=== PATIENT | male | born 1940 | race Caucasian/White ===

== ENCOUNTER → 2018-10-19 | Outpatient (CLI) | payer OTHER ==
[2018-05-27 05:24] VITALS: BP 156/67
[~2018-10-19] MED LIST: ACET-704 PO; ASPI-482 PO; ATOR20TA58 PO; CALC600T4 PO; CALCIUM PO; CARV3.1210 PO; CHOL10003 PO; DILT240C2 PO; FISH1CAP PO; FURO-69 PO; GADOBUTROL 10 MMOL/10 ML VIAL IV ONE; GLYB5TAB3 PO; LEVO300T4 PO; LOSA100T14 PO; METF500T PO; MULT1TAB52 PO; OMEG500C PO; OMEP20TA8 PO; POTA20TA12 PO; SILD50TA PO; VARD20TA2 PO; VITAMIN D PO
--- NOTE | 2018-10-19 13:05 | KCIC ---
EXAMINATION: Magnetic resonance imaging (MRI) of the lumbar spine with and without contrast 10/19/2018 11:00 AM HISTORY: Syrinx of the spinal cord. Progressing leg weakness and incontinence.. TECHNIQUE: Multiplanar multi-weighted MRI of the lumbar spine was performed with and without intravenous contrast using the standard lumbar spine protocol. Contrast information: 10 cc Gadavist was administered intravenously. COMPARISON: MRI lumbar spine May 17, 2009, which is not available for comparison at the time of image interpretation. Findings: There is minimal retrolisthesis of L1 on L2. There is advanced disc height loss of L1-L2 with endplate remodeling and moderate anterior marginal osteophytosis. There is moderate disc height loss at L3-L4 with endplate remodeling and Modic type I endplate degenerative changes. There is an inferior endplate Schmorl's node at L3. There is an inferior endplate Schmorl's node at L4 without significant height loss. Modic type I endplate degenerative changes are identified at L4-L5 with moderate disc height loss, disc desiccation and anterior marginal osteophytosis. No acute fracture is identified. Disc signal is preserved at L5-S1. Annular fissures are identified at L3-L4 and L4-L5. The conus medullaris terminates at L1-L2. There is a distal syrinx measuring 2.5 cm in craniocaudal dimension and 3 mm AP dimension. Abdominal aorta is normal in caliber. No suspicious retroperitoneal abnormality is identified. There is a fatty filum terminale. No suspicious enhancement is identified. T12-L1: There is a mild circumferential disc bulge. There is mild facet arthropathy. There is mild left neuroforaminal stenosis. No significant spinal canal stenosis. L1-L2: There is a moderate disc bulge. There is mild facet arthropathy. There is moderate bilateral neuroforaminal stenosis. Mild spinal canal stenosis. L2-L3: There is a mild disc bulge asymmetric to the right. There is moderate facet arthropathy. There is mild left neuroforaminal stenosis. Mild right neuroforaminal stenosis. Mild spinal canal stenosis, exacerbated by epidural lipomatosis. L3-L4: There is a moderate disc bulge with left central disc extrusion. There is severe facet arthropathy. There is moderate bilateral neuroforaminal stenosis, left greater than right. Moderate to severe spinal canal stenosis, exacerbated by epidural lipomatosis. L4-L5: There is a moderate disc bulge with central disc extrusion extending cranially to the infra pedicle level of L4. There is severe facet arthropathy. There is moderate bilateral neuroforaminal stenosis. Moderate to severe spinal canal stenosis, exacerbated by epidural lipomatosis. L5-S1: Disc is normal in configuration. There is severe right and moderate left facet arthropathy. No neuroforaminal or spinal canal stenosis. IMPRESSION: Moderate to advanced degenerative changes of the lumbar spine, as described in detail above. Findings are exacerbated by epidural lipomatosis. There is a syrinx involving the distal cord measuring 3 mm in maximal diameter. Findings measure similar to the prior report. Prior images are not available for comparison at the time of image interpretation. Electronically signed by: Jelly Melgoza MD (10/19/2018 1:00 PM) [facility]
== END | disposition home or self-care (01) ==
LOC: KCIC MRI 10:38
PROVIDERS: ATTEND Family Medicine
DX: G95.0 Syringomyelia and syringobulbia (principal); M47.896 Other spondylosis, lumbar region; M12.88 Other specific arthropathies, not elsewhere classified, other specified site; M51.26 Other intervertebral disc displacement, lumbar region; M48.061 Spinal stenosis, lumbar region without neurogenic claudication; M51.46 Schmorl's nodes, lumbar region; I11.0 Hypertensive heart disease with heart failure; I50.9 Heart failure, unspecified; E11.9 Type 2 diabetes mellitus without complications; Z87.891 Personal history of nicotine dependence
CPT/HCPCS: 72158; A9585

== ENCOUNTER → 2018-11-16 | Outpatient (CLI) | payer OTHER ==
[2018-05-27 05:24] VITALS: BP 156/67
[~2018-11-16] MED LIST changes: +CARV12.511 PO; +DIPH25CA58 PO; -GADOBUTROL 10 MMOL/10 ML VIAL IV ONE; +GLIP10TA13 PO; +PIOG15TA42 PO
--- NOTE | 2018-11-16 09:12 | RAD ---
MRI Thoracic Spine without contrast History: Chronic back pain Technique: Multiplanar, multi sequential noncontrast MR imaging was performed of the thoracic spine. Comparison: None Findings: Thoracic vertebral body stature is overall maintained. Thoracic cord caliber is within normal limits without significant focal signal abnormality. There is multilevel mild posterior epidural lipomatosis without significant spinal stenosis. There is negligible anterior spondylolisthesis T2-T3. There is hemangioma of T6. Facet and uncovertebral degenerative change contributes to vuqo-qf-afrnkgab narrowing of the left T2-T3 neural foramen. Facet degenerative change contributes to mild posterior narrowing of the right T7-T8, T8-T9, T9-10 neural foramina. There is buckling of the ligamentum flavum greatest T6-T7. There is mild T2-3 endplate edema likely reactive/degenerative in etiology. There is mild degenerative disc disease at T2-T3, mild disc desiccation at other more inferior levels. Impression: 1. There is no significant thoracic spinal stenosis. There is mild to moderate narrowing of the left T2-3 neural foramen, mild narrowing by facet degenerative change on the right T7-T8 through T9-10. There is mild T2-3 endplate edema likely reactive/degenerative in etiology, mild degenerative disc disease at this level. There is mild disc desiccation at more inferior thoracic levels. Electronically signed by: Ray Iverson MD (11/16/2018 9:09 AM) [facility]
== END | disposition home or self-care (01) ==
LOC: MRI 07:49
PROVIDERS: ATTEND Neurological Surgery
DX: M48.04 Spinal stenosis, thoracic region (principal); M51.34 Other intervertebral disc degeneration, thoracic region; D18.09 Hemangioma of other sites
CPT/HCPCS: 72146

== ENCOUNTER → 2018-12-17 | Outpatient (CLI) | payer OTHER ==
[2018-05-27 05:24] VITALS: BP 156/67
--- NOTE | 2018-12-18 00:42 | PAIN ---
DATE OF SERVICE: 12/17/2018 INITIAL CONSULTATION FOR PAIN CLINIC CHIEF COMPLAINT: Low back, bilateral lower extremity discomfort and also mobility decrease. HISTORY OF PRESENT ILLNESS: The patient is a 78-year-old male with history of discomfort in the low back and lower extremity since 2002, gradually increasing, much worse over the past year or so. The patient reports his mobility has become worse. She is having weakness in his legs as well as discomfort and pain radiating in the low back, bilateral, essentially, right greater than left with some weakness in the foot as well and foot turning outward when he is walking, when it is at its greatest, the patient reports worse with sitting, standing, walking, and change of sitting to a standing position, better with lying down, which does not generally awaken him from sleep at night, occasionally it will, but very rarely. The patient reports it does not affect his bowel or bladder control, to a significant extent, but does affect his ability to walk and he is using a cane in his left hand and significant antalgic gait, favoring the right lower extremity. The patient reports she has had no formal physical therapy, but he has been going to the [facility] and he is doing some exercise currently on his own through a head athletic trainer on a program at the [facility] especially with his legs trying to strengthen them and his low back. The patient reports it does become more uncomfortable the more he does. He has been limiting his ability to do it as well as he would like. The patient reports he does some stretching and strengthening exercises on his own at home, at the [facility] has shown him as well. The patient reports his discomfort is aching and sometimes cold in the lower extremities as well as a throbbing and tight feeling in the low back itself. The patient reports no loss of motor function, but significant fatigability, especially the right lower extremity. The patient reports his disability rate from 0-10, 10 being the worst, is a 6 with family home responsibilities and recreation, 5 with social activity, 5 with occupation and sexual behavior, self-care and 3 with life support activities. The patient had MRI scan of the lumbar spine dated 10/19/2018, showing moderate to advanced degenerative change of lumbar spine especially L3-L4 and L4-L5 with a left central disk extrusion at L3-L4, with severe facet arthropathy and moderate bilateral neural foraminal stenosis, left greater than right, L4-L5 shows moderate disk bulge with central disk extrusion, severe facet arthropathy, moderate bilateral neural foraminal stenosis, [id number] spinal canal stenosis, exacerbated by the epidural lipomatosis at L4-L5 as well. 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 PREVIOUS SURGERY: Include a pyloroplasty and vagotomy in 1966, left shoulder surgery in 1967, hemorrhoidectomy 1977, right foot neuroma excision in 2000, 2002 thoracic syrinx excision, 2007 TURP, and then bilateral cataract extractions done as well. CURRENT MEDICATIONS: Include potassium, atorvastatin, Lasix, carvedilol, glipizide, Benadryl, Actos, vitamin D3, fish oil, multivitamins daily, baby aspirin, losartan, and omeprazole. ALLERGIES: The patient is allergic to LISINOPRIL, DETROL, SPORANOX, NIASPAN, FLUTICASONE, and SULFA. FAMILY HISTORY: Significant for colon cancer, cardiac disease, small cell carcinoma, glioblastoma. SOCIAL HISTORY: The patient quit smoking in 1968. Drinks alcohol about 1-2 alcoholic drinks a day on average. Does not use any illegal, illicit, or recreational drugs. He is and lives with his spouse, lives locally in [place], [place]. Reports he is currently retired. REVIEW OF SYSTEMS: The patient's review of systems is positive for those items mentioned in history of present illness. All systems reviewed and otherwise negative. It is complete, full and well documented on the patient's chart. PHYSICAL EXAMINATION: VITAL SIGNS: Today, blood pressure 144/81, pulse 59, respirations 16, and temperature 97.9 degree fahrenheit. Height 5 feet 9 inches and weight is 216 pounds. GENERAL: The patient is awake, alert, oriented, appropriate, very pleasant demeanor. HEENT: Head is normocephalic, atraumatic. Extraocular movements are intact and symmetrical. Oral cavity: Mucous membranes moist and pink. Dentition is intact. NECK: Shows anterior throat supple without palpable lymphadenopathy noted. Swallow reflex symmetrical. CHEST: Shows normal with inspection. Breath sounds clear to auscultation bilaterally. HEART: Shows S1, S2 clear. No murmurs auscultated. ABDOMEN: Obese, soft, nontender, nondistended. No palpable organomegaly is noted. No rebound or guarding demonstrated. BACK: Shows spine grossly in the midline. Normal appearing thoracic kyphosis and mild flattening of lumbar lordotic curvature. Well healed surgical scars noted in the mid to low thoracic distribution. Paraspinous muscle shows symmetrical on inspection. On palpation it shows some moderate tenderness in the lumbar low thoracic distribution of the paraspinous muscles, but only diffusely without atrophy, hypertrophy without asymmetry, without radiation of pain. The patient has good rotational motion of the lumbar spine, both laterally greater than 10 degrees right and left as well as extension greater than 10 degrees, forward flexion 4-5 degrees without significant pain reported. EXTREMITIES: The patient's lower extremities show deep tendon reflexes at 1+ in the patellar and tendo calcaneus tendons, equal. Motor exam is approximately 4 on a scale of 5, but symmetrical with dorsiflexion, extension, quadriceps, and hamstring flexion. Peripheral pulses are 1+ posterior tibial and dorsalis pedis pulses. No peripheral edema is noted. Lower extremities are warm and dry to touch, equal in color and appearance. The patient does have a slight eversion of the right ankle even at rest. This is exacerbated with standing. The patient reports significant weakness and discomfort with standing from a seated position. Walking, he has significant antalgic gait and appears is favoring the right lower extremity, significantly using a cane in his left hand to ambulate. SKIN: Warm and dry, good turgor. No edema. No sores, rashes, or bruising throughout. IMPRESSION: 1. This is a 78-year-old male with a long history of low back and bilateral lower extremity discomfort as well as increasing mobility and fatigue of the lower extremities, again worse on the right than the left over the past 1 year, exacerbated. 2. Type 2 diabetes. 3. Hypertension. 4. Arthritis. 5. Gastroesophageal reflux. PLAN: Options were discussed with the patient including conservative medical management, physical therapies, and interventional techniques as he doing good exercise program with the [facility], doing stretching on his own as well. He would like to pursue interventional techniques. We discussed a lumbar epidural steroid injection using description as well as anatomical models to describe the procedure. The patient does have a radiculopathy in the bilateral, worse on the right L4-L5 dermatomal distribution. We will preauthorize the patient for L4-L5 translaminar epidural injection. In the meantime, the patient will continue with his exercise therapy that is due to [employer] as well daily activity and exercise as tolerated. We have him return once preauthorization is obtained and plan on lumbar epidural steroid injection at that time. DANIEL MALONEY MD DR: PETER/jeovany JOB#: [id number] / [id number] RIVKA Hand MD
== END | disposition home or self-care (01) ==
LOC: PNCL 07:49
PROVIDERS: ATTEND Anesthesiology
DX: I10 Essential (primary) hypertension (principal); E11.9 Type 2 diabetes mellitus without complications; K21.9 Gastro-esophageal reflux disease without esophagitis; M19.90 Unspecified osteoarthritis, unspecified site; I48.91 Unspecified atrial fibrillation; Z87.891 Personal history of nicotine dependence; Z88.8 Allergy status to other drugs, medicaments and biological substances; Z88.0 Allergy status to penicillin; Z80.0 Family history of malignant neoplasm of digestive organs; Z91.018 Allergy to other foods; Z72.89 Other problems related to lifestyle; Z85.89 Personal history of malignant neoplasm of other organs and systems; Z88.2 Allergy status to sulfonamides; Z87.19 Personal history of other diseases of the digestive system; Z79.82 Long term (current) use of aspirin; Z79.899 Other long term (current) drug therapy; Z98.890 Other specified postprocedural states
CPT/HCPCS: G0463

== ENCOUNTER → 2018-12-31 | Outpatient (CLI) | payer OTHER ==
[2018-05-27 05:24] VITALS: BP 156/67
[~2018-12-31] MED LIST changes: +IOHEXOL 180 MG/ML 10 ML VIAL. ONE; +methylPREDNISolone ACETATE 40 MG/ML VIAL. ONE; +methylPREDNISolone ACETATE 80 MG/ML VIAL. ONE
--- NOTE | 2019-01-01 00:22 | PAIN ---
DATE OF SERVICE: 12/31/2018 PROGRESS NOTE FOR PAIN CLINIC DIAGNOSES: Lumbar radiculopathy with lumbar spinal stenosis and lumbar degenerative disk disease. HISTORY OF PRESENT ILLNESS: The patient is a 78-year-old male who returns for followup status post initial evaluation and preauthorization for lumbar epidural steroid injection. The patient reports still significant mobility and unsteadiness with his lower extremities bilaterally. The patient reports no significant change. No new motor or sensory deficits; however, no new bowel or bladder incontinence, worse with standing, walking, better with sitting or lying down, does not awaken him from sleep at night. The patient reports his pain is 0 in all categories, average, worst and least and his main complaint is instability with radiating occasional pain in the lower extremities. The patient reports no new motor or sensory deficits and no new bowel or bladder incontinence or other complaints. PHYSICAL EXAMINATION: VITAL SIGNS: The patient's blood pressure 146/80, pulse 61, respirations 16 and temperature 97.9 degrees Fahrenheit. Height is 5 feet 9 inches and weight is 217 pounds. GENERAL: The patient is awake, alert, oriented, appropriate and very pleasant demeanor. HEENT: Head is normocephalic and atraumatic. Extraocular movements are intact and symmetrical. Oral cavity: Mucous membranes are moist and pink. Dentition is intact. NECK: Shows anterior throat supple without palpable lymphadenopathy noted. Swallow reflex is symmetrical. CHEST: Shows normal on inspection. Breath sounds clear to auscultation bilaterally. HEART: Shows S1 and S2 clear. No murmurs auscultated. ABDOMEN: Soft, nontender and nondistended. No palpable organomegaly is noted. No rebound or guarding demonstrated. BACK: Shows spine grossly in the midline. Normal appearing thoracic kyphosis and lumbar lordotic curvature. Well healed surgical scars noted in the thoracic distribution. Lumbar paraspinous muscle shows symmetrical on inspection. On palpation shows some moderate tenderness diffusely but only diffusely without significant radiation. The patient has good rotational motion of the lumbar spine, both laterally as well as extension and flexion without difficulty. EXTREMITIES: Lower extremities show deep tendon reflexes at 1+ in the patellar and tendo-calcaneus tendons. Motor exam is approximately 4 on a scale of 5 but equal and symmetrical with dorsiflexion, extension, quadriceps and hamstring flexion. Peripheral pulses are 1+ posterior tibia. No peripheral edema is noted. Options were discussed with the patient. The patient's old chart was reviewed as well as his current medication regimen updated. Current review of systems updated today as well. We will proceed with a lumbar epidural steroid injection today with fluoroscopic guidance. Risks were again discussed including, but not limited to bleeding, infection, possibility of epidural hematoma, subsequent neurological compromise, dural puncture, headaches, spinal cord and/or nerve damage, side effects of steroid medication and poor results regarding pain control. The patient understands and wished to proceed. The patient will return to the clinic in approximately 2 weeks for followup, was counseled as to return appointment, activity level and side effects to be aware of. DIAGNOSES: Lumbar radiculopathy with lumbar spinal stenosis and lumbar degenerative disk disease. PROCEDURE: Lumbar epidural steroid injection, translaminar approach, L4-L5 level using C-arm fluoroscopic guidance under sterile prep and drape using local anesthetic. MEDICATION INJECTED: A total of 120 mg Depo-Medrol plus 10 mL of preservative-free normal saline and 2 mL of Isovue for contrast. CONDITION AT DISCHARGE: Stable. The patient tolerated the procedure well and had no complications. DANIEL MALONEY MD DR: PETER/jeovany JOB#: [id number] / [id number]
== END | disposition home or self-care (01) ==
LOC: PNCL 07:33
PROVIDERS: ATTEND Anesthesiology
DX: M51.16 Intervertebral disc disorders with radiculopathy, lumbar region (principal); M48.061 Spinal stenosis, lumbar region without neurogenic claudication; Z88.1 Allergy status to other antibiotic agents; Z88.8 Allergy status to other drugs, medicaments and biological substances
CPT/HCPCS: 62323; J1030; J1040; Q9965

== ENCOUNTER → 2020-03-27 | Outpatient (CLI) | payer MEDICARE ==
[2018-05-27 05:24] VITALS: BP 156/67
[~2020-03-27] MED LIST changes: -CALC600T4 PO; +CALC600T6 PO; -IOHEXOL 180 MG/ML 10 ML VIAL. ONE; +MULT-445 PO; -MULT1TAB52 PO; +REGADENOSON 0.4 MG/5 ML DISP.SYRIN. IV ONE; -methylPREDNISolone ACETATE 40 MG/ML VIAL. ONE; -methylPREDNISolone ACETATE 80 MG/ML VIAL. ONE
--- NOTE | 2020-03-27 12:25 | RAD ---
MR#: [id number] Date of Study: 03/27/2020 Ordering Physician: ONEL MORROW Referring Physician: CELSO TARIQ Tech: JUVE Vergara APPROVED REPORT Test Type: Pharmacological Stress Nurse/Tech: Kathy Rai R.N. Test Indications: AFib w/ablation Cardiac History: htn, afib,dm Medications: See Electronic Medical Record Medical History: See Electronic Medical Record Resting ECG: SR- low voltage P waves in mx leads, inverted P wave in leads I,AVL. inverted T wa ves in leads I,II.AV;.AVF. V3-V6 Resting Heart Rate: 62 bpm Resting Blood Pressure: 157/71mmHg Pretest Chest Pain: No chest pain Nurse/Tech Notes S1S2, lungs CTA Consent: The procedure was explained to the patient in lay terms. Informed consent was witnessed. Mumtaz eout was entered into [employer]. History and Stress Test performed by JUVE Vergara Pharm. Details Pharmacologic stress testing was performed using 0.4mg per 5ml of regadenoson given intravenously ove r 7-10 seconds. Stress Symptoms SOA POST EXERCISE Reason for Termination: Infusion complete Max HR: 82 bpm Max Blood Pressure: 142/60mmHg Blood Pressure response to exercise: Normal blood pressure response during stress. Heart Rate response to exercise: wnl Chest Pain: No. Arrhythmia: No. ST Change: No. INTERPRETATION Stress EKG Conclusion: No evidence of ischemia. Imaging Protocol IMAGE PROTOCOL: Rest Tc-99m/stress Tc-99m 1 day Rest: Stress: Viability: Radiopharm.Tc99m [id number] Sestamibi [id number] 33mCi Duration 15min. 10min. Img Date 03/27/2020 03/27/2020 Inj-Img [id number]. 60min. Rest Admin Site:IV - Left ForearmAdministrator:JUVE Vergara Stress Admin Site: IV - Left ForearmAdministrator: JUVE Vergara STRESS DATA End Diast. Vol.98.0mlAv. Heart Rate76.0bpm End Syst. Vol.26.0mlCO Index BSA0.0L/min Myocardial Ykgf981.0gEject. Evlftdhk99.0% Stress Rates Pk. Fill Rate3.18EDV/secLVtime Pk. Fill 156.89msec Pk. Empty Rate4.24ESV/secLVtime Pk. Drsqx956.24msec 1/3 Pk. Fill1.90EDV/sec Stress Scores Regional WT1.00Summed WT18.00 Regional WM0.00Summed WM0.00 The rest and stress images show normal perfusion, normal contraction and thickening. LV Perf. Quant 17 Seg. SSS10.00 17 Seg. SRS4.00 17 Seg. SDS6.00 Stress Defect Extent (% LAD)2.50Rest Defect Extent (% LAD)1.30Rev. Defect Extent (% LAD)0.00 Stress Defect Extent (% LCX) 51.30Rest Defect Extent (% LCX)36.30Rev. Defect Extent (% LCX)3.80 Stress Defect Extent (% RCA)0.00Rest Defect Extent (% RCA)0.00Rev. Defect Extent (% RCA)0.00 Stress Defect Extent (% THERESA)14.60Rest Defect Extent (% THERESA)9.60Rev. Defect Extent (% THERESA)1.30 Other Information Quality:Average Risk Assessment: Low Risk Conclusion 1. No evidence of EKG changes with stress testing. 2. Baseline EKG with artifact but appears to be SR. 3. Normal perfusion at stress/rest. 4. Low risk study. 5. EF > 60%. Signed by : Job García, Electronically Approved : 03/27/2020 12:24:41
== END | disposition home or self-care (01) ==
LOC: NM 08:03
PROVIDERS: ATTEND Internal Medicine Cardiovascular Disease
DX: I48.91 Unspecified atrial fibrillation (principal); I10 Essential (primary) hypertension; E11.9 Type 2 diabetes mellitus without complications
CPT/HCPCS: 78452; 93017; A9500; J2785

== ENCOUNTER 2020-12-01 18:34 | Emergency (ER) | payer MEDICARE ==
[~2020-12-01] VITALS: Ht 175.3 cm; Wt 93.0 kg
[~2020-12-01 18:34] MED LIST changes: -REGADENOSON 0.4 MG/5 ML DISP.SYRIN. IV ONE
[2020-12-01 18:38] VITALS: BP 177/85
[2020-12-01] MEDS: LIDOCAINE/EPI/TETRACAINE TOPICAL GEL 3 ML. TP ONE (18:58)
--- NOTE | 2020-12-01 19:06 | ED.ADGEN ---
Past Medical History Past Medical History: A-Fib, CHF, Diabetes-Type II, Hypertension Additional Past Medical Histor: OK Past Surgical History: Other Additional Past Surgical Histo: "I DON'T KNOW MY SURGICAL HISTORY." Smoking Status: Never Smoker Alcohol Use: Heavy Additional Information: "I DRINK DAILY." Drug Use: None General Adult EDM: Chief Complaint: LACERATION/AVULSION HPI: HPI: Patient is a 80 year old female coming in via EMS after a fall. Patient was standing and lost his balance and fell backwards striking a corner with his head, causing a linear laceration. Denies any loss of consciousness. Patient states the fall was mechanical attributes it to his spinal stenosis. 3 is. States he otherwise been well. Last tetanus 2011 Review of Systems: Review of Systems: All other systems within normal limits except for as noted in the HPI Current Medications: Current Medications Medications (Trade) Dose Ordered Sig/Hermila Start Time Stop Time Status Last Admin Dose Admin Diphtheria/ Tetanus/Acell Pertussis (ADACEL TDap SYRINGE) 0.5 ml ONCE ONCE 12/01/20 20:30 12/01/20 20:31 Tetracaine/ Epinephrine/ Lidocaine (Let (Fjol-Qahickf-Fsjht) Gel) 3 ml 1X ONCE 12/01/20 19:00 12/01/20 19:01 DC 12/01/20 18:58 3 ML Allergies: Allergies: Allergies Coded Allergies Type Severity Reaction Last Updated Verified fluticasone Allergy Intermediate elevated blood sugars 05/04/14 No itraconazole Allergy Intermediate legs swelling 05/04/14 No lisinopril Allergy Intermediate 05/13/14 Yes tolterodine Allergy Intermediate URINARY DIFFICULTY 08/08/15 Yes niacin Adverse Reaction Intermediate urgent bowel movements 05/04/14 Yes sulfamethoxazole Adverse Reaction Intermediate 05/27/18 Yes trimethoprim Adverse Reaction Intermediate 05/27/18 Yes Physical Exam: PE: Constitutional: Well developed, well nourished, no acute distress, non-toxic appearance. [] HENT: Normocephalic, atraumatic, bilateral external ears normal, nose normal. [] Eyes: PERRLA, conjunctiva normal, no discharge. [] Neck: No rigidity, supple, no stridor. [No C-spine tenderness] Cardiovascular: Regular rate and rhythm, brisk cap refill [] Lungs & Thorax: Non labored symmetric respirations, no tachypnea or respiratory distress [] Abdomen: Soft, nondistended. Skin: Warm, dry, no erythema, no rash. Laceration to posterior scalp [] Back: Unremarkable Extremities: No deformities, range of motion grossly intact, no lower extremity edema [] Neurologic: Alert and oriented X 3, no focal deficits noted. [] Psychologic: Affect normal, judgement normal, mood normal. [] Current Patient Data: Vital Signs: Vital Signs Date Time Temp Pulse Resp B/P (MAP) Pulse Ox O2 Delivery O2 Flow Rate FiO2 12/01/20 18:38 97.5 71 16 177/85 (115) 97 Room Air 97.5 EKG: EKG: [] Heart Score: C/O Chest Pain: N/A Risk Factors: Risk Factors: DM, Current or recent (<one month) smoker, HTN, HLP, family history of CAD, obesity. Risk Scores: Score 0 - 3: 2.5% MACE over next 6 weeks - Discharge Home Score 4 - 6: 20.3% MACE over next 6 weeks - Admit for Clinical Observation Score 7 - 10: 72.7% MACE over next 6 weeks - Early Invasive Strategies Radiology/Procedures: Radiology/Procedures: CT brain without contrast, CT C-spine without contrast HISTORY: Fall, head injury CT brain CT scan the brain was done without contrast. Sinuses are clear. A skull fracture is not identified. There is no intracranial hemorrhage or subdural hematoma. There is no mass effect or shift of the midline. An acute CVA is not identified. Ventricles are normal in size. There is mild decreased density in the periventricular white matter from chronic microvascular changes. IMPRESSION: 1. Mild atrophy and chronic white matter changes. 2. No intracranial hemorrhage or acute finding noted. End impression CT cervical spine Axial CT images were obtained through the cervical spine. Sagittal and coronal reconstructed images were reviewed. An acute fracture is not identified. There is facet arthritis at several levels. C-spine is in normal alignment. There is disc space narrowing and spurring at C5-6. IMPRESSION: 1. Degenerative changes in the cervical spine. 2. No acute C-spine fracture. [] Impression: Patient was prepped and draped in normal fashion, wound irrigated and cleansed with normal saline. The 4 cm wound was anesthetized with let. Depth of wound was examined and no foreign bodies found. Wound was approximated with 6 damaris placed without complication. Course & Med Decision Making: Course & Med Decision Making Tetanus updated Selena Disclaimer: Selena Disclaimer: This electronic medical record was generated, in whole or in part, using a voice recognition dictation system. Departure Departure Impression: Primary Impression: Fall Additional Impression: Occipital scalp laceration Disposition: 01 DC HOME SELF CARE/HOMELESS Condition: STABLE Referrals: ESAU SAEED MD (PCP) Patient Instructions: Staple Wound Closure, [id number] Additional Instructions: Follow-up with your primary care provider return to emergency department for staple removal in 10 to 14 days. Use antibiotic ointment and sunscreen to protect wound. Problem Qualifiers ROSI MERAZ MD Dec 01, 2020 19:06
--- NOTE | 2020-12-01 19:36 | RAD ---
CT brain without contrast, CT C-spine without contrast HISTORY: Fall, head injury CT brain CT scan the brain was done without contrast. Sinuses are clear. A skull fracture is not identified. T here is no intracranial hemorrhage or subdural hematoma. There is no mass effect or shift of the midl ine. An acute CVA is not identified. Ventricles are normal in size. There is mild decreased density i n the periventricular white matter from chronic microvascular changes. IMPRESSION: 1. Mild atrophy and chronic white matter changes. 2. No intracranial hemorrhage or acute finding noted. End impression CT cervical spine Axial CT images were obtained through the cervical spine. Sagittal and coronal reconstructed images w ere reviewed. An acute fracture is not identified. There is facet arthritis at several levels. C-spin e is in normal alignment. There is disc space narrowing and spurring at C5-6. IMPRESSION: 1. Degenerative changes in the cervical spine. 2. No acute C-spine fracture. PQRS Compliance Statement: One or more of the following individualized dose reduction techniques were utilized for this examinat ion: 1. Automated exposure control 2. Adjustment of the mA and/or kV according to patient size 3. Use of iterative reconstruction technique Electronically signed by: Yogesh Edmondson MD (12/01/2020 7:34 PM) [facility]
[2020-12-01] MEDS ORDERED: DIPH,PERTUSS(ACELL),TET VAC/PF 0.5 ML SYRINGE. VAX IM ONE (20:30)
== END 2020-12-01 20:44 | disposition home or self-care (01) ==
LOC: ER 18:34
DX: S01.01XA Laceration without foreign body of scalp, initial encounter (principal); I48.91 Unspecified atrial fibrillation; I11.0 Hypertensive heart disease with heart failure; I50.9 Heart failure, unspecified; E11.9 Type 2 diabetes mellitus without complications; I25.2 Old myocardial infarction; Z88.1 Allergy status to other antibiotic agents; Z88.2 Allergy status to sulfonamides; Z88.8 Allergy status to other drugs, medicaments and biological substances; W18.09XA Striking against other object with subsequent fall, initial encounter; Y93.89 Activity, other specified; Y92.89 Other specified places as the place of occurrence of the external cause; Y99.8 Other external cause status
CPT/HCPCS: 12002; 70450; 72125; 99285-25

== ENCOUNTER → 2021-03-27 | Outpatient (CLI) | payer MEDICARE ==
[~2021-03-27] MED LIST changes: -CALC600T6 PO; +CALC600T60 PO
--- NOTE | 2021-03-27 10:23 | CARD ---
MR#: [id number] Date of Study: 03/27/2021 Ordering Physician: ONEL MORROW, Referring Physician: Adama TARIQ: Chase Yadav [facility] APPROVED REPORT EXAM: Two-dimensional and M-mode echocardiogram with Doppler and color Doppler. Other Information Quality : FairHR: 66bpm Rhythm : NSRTechnically limited study due to body habitus. INDICATION Atrial Fibrillation Surgery/Intervention Previous atrial fibrillation ablation 2D DIMENSIONS Left Atrium(2D)4.3 (1.6-4.0cm)IVSd0.9 (0.7-1.1cm) Aortic Root(2D)2.6 (2.0-3.7cm)LVDd4.4 (3.9-5.9cm) LVOT Diameter1.9 (1.8-2.4cm)PWd0.9 (0.7-1.1cm) LVDs2.8 (2.5-4.0cm)FS (%) 35.3 % SV56.1 mlLVEF(%)64.9 (>50%) Aortic Valve AoV Peak Giuseppe.123.1cm/sAoV VTI32.1cm AO Peak GR.6.1mmHgLVOT Peak Giuseppe.106.8cm/s AO Mean GR.4mmHgAVA (VMAX)2.46cm2 Mitral Valve MV E Onnoswpw78.5cm/sMV E Peak Gr.4mmHg MV DECEL [id number] A Blwjswjp81.0cm/s MV E Mean Gr.1mmHgE/A Ratio1.9 Pulmonary Valve PV Peak Qtinzbnx57.3cm/s Tricuspid Valve TR P. [id number]/sTR Peak Gr.17mmHg LEFT VENTRICLE The left ventricle is normal size. There is normal left ventricular wall thickness. The left ventricu lar systolic function is mildly reduced. EF 45% There is mild global hypokinesis with moderate basal to mid inferior wall hypokinesis. Tissue Doppler imaging reveals moderate left ventricular diastolic dysfunction. RIGHT VENTRICLE The right ventricle is normal size. There is normal right ventricular wall thickness. The right ventr icular systolic function is normal. ATRIA The left atrium is moderately dilated. The right atrium is moderately dilated. The interatrial septum is intact with no evidence for an atrial septal defect or patent foramen ovale as noted on 2-D or Do ppler imaging. AORTIC VALVE The aortic valve is not well visualized. Doppler and Color Flow revealed no significant aortic regurg itation. There is no significant aortic valvular stenosis. There is no aortic valvular vegetation. MITRAL VALVE Not well visualized. Grossly within normal limits. There is no evidence of mitral valve prolapse. The re is no mitral valve stenosis. Doppler and Color-flow revealed trace to mild mitral regurgitation. TRICUSPID VALVE Not well visualized. Doppler and Color Flow revealed no tricuspid valve regurgitation noted. There is no tricuspid valve prolapse or vegetation. There is no tricuspid valve stenosis. PULMONIC VALVE Not well seen. Doppler and Color Flow revealed no pulmonic valvular regurgitation. There is no pulmon ic valvular stenosis. GREAT VESSELS The aortic root is normal in size. The IVC is normal in size and collapses >50% with inspiration. PERICARDIAL EFFUSION There is no pleural effusion. There is no evidence of significant pericardial effusion. Critical Notification Critical Value: No <Conclusion> The left ventricular systolic function is mildly reduced. EF 45% There is mild global hypokinesis with moderate basal to mid inferior wall hypokinesis. Technically very difficult study. Signed by : Job García, Electronically Approved : 03/27/2021 10:23:03
== END ==
LOC: ECHO 07:37
PROVIDERS: ATTEND Internal Medicine Cardiovascular Disease
DX: I34.0 Nonrheumatic mitral (valve) insufficiency (principal); I48.91 Unspecified atrial fibrillation
CPT/HCPCS: 93306

== ENCOUNTER 2021-06-17 18:46 | Emergency (ER) | payer MEDICARE ==
[~2021-06-17] VITALS: Ht 182.9 cm; Wt 113.6 kg
--- NOTE | 2021-06-17 19:01 | PHYS DOC ---
Past Medical History Past Medical History: A-Fib, CHF, Diabetes-Type II, Hypertension Additional Past Medical Histor: ND Past Surgical History: Other Additional Past Surgical Histo: "I DON'T KNOW MY SURGICAL HISTORY." Smoking Status: Never Smoker Alcohol Use: Heavy Drug Use: None General Adult EDM: Chief Complaint: HYPOTENSION HPI: HPI: Patient is a 81-year-old male presenting via EMS for hypotension. Patient has been at baseline health, took all morning medications and no nighttime medications yet when he finished eating dinner and was acting often per his . Decision was made to check his blood pressure and it was found to be low at that time. EMS was contacted and on arrival, patient was found to be 70/50. Patient was bolused 500 mL normal saline and transported to our facility for evaluation. On arrival, patient has no complaints. Denies any falls, fever, vision changes, chest pain, ripping or tearing sensation in the torso, shortness of breath, abdominal pain, bladder or bowel incontinence, changes in motor or sensory neuro function. States he is unsure what happened, he has never had any issues with low blood pressure in the past. He admits he has significant cardiac history for A. fib that has been well covered in outpatient setting by care at [facility] in [facility]. He had recent echo performed March 2021 showing left ventricular systolic dysfunction with mildly reduced EF 45%. He does admit he recently had the flu shot and is fully vaccinated against COVID-19. Review of Systems: Review of Systems: Fourteen body systems of review of systems have been reviewed. See HPI for pertinent positives and negative responses, other bear all other systems are negative, non-pertinent or non-contributory Heart Score: C/O Chest Pain: No HEART Score for Chest Pain: HEART Score for Chest Pain Response (Comments) Value History Slighlty/Non-Suspicious 0 ECG Normal 0 Age > 65 2 Risk Factors >3 Risk Factors or Hx CAD 2 Troponin < Normal Limit 0 Total 4 Risk Factors: Risk Factors: DM, Current or recent (<one month) smoker, HTN, HLP, family history of CAD, obesity. Risk Scores: Score 0 - 3: 2.5% MACE over next 6 weeks - Discharge Home Score 4 - 6: 20.3% MACE over next 6 weeks - Admit for Clinical Observation Score 7 - 10: 72.7% MACE over next 6 weeks - Early Invasive Strategies Allergies: Allergies: Allergies Coded Allergies Type Severity Reaction Last Updated Verified fluticasone Allergy Intermediate elevated blood sugars 05/04/14 No itraconazole Allergy Intermediate legs swelling 05/04/14 No lisinopril Allergy Intermediate 05/13/14 Yes tolterodine Allergy Intermediate URINARY DIFFICULTY 08/08/15 Yes niacin Adverse Reaction Intermediate urgent bowel movements 05/04/14 Yes sulfamethoxazole Adverse Reaction Intermediate 05/27/18 Yes trimethoprim Adverse Reaction Intermediate 05/27/18 Yes Physical Exam: PE: Constitutional: Well developed, well nourished, no acute distress, non-toxic appearance. HENT: Normocephalic, atraumatic, bilateral external ears normal, oropharynx moist, no oral exudates, nose normal. Eyes: PERRLA, EOMI, conjunctiva normal, no discharge. Neck: Normal range of motion, no tenderness, supple, no stridor. Cardiovascular: Heart rate regular, sinus rhythm, no murmurs rubs or gallops Lungs & Thorax: Bilateral breath sounds clear to auscultation Abdomen: Bowel sounds normal, soft, no tenderness, no masses, no pulsatile masses. Nonsurgical abdomen, no peritoneal signs Skin: Warm, dry, no erythema, no rash. Back: No tenderness, no CVA tenderness. Extremities: No tenderness, no cyanosis, no clubbing, ROM intact, no edema. Neurologic: Alert and oriented X 3, cranial nerves II through XII intact, normal motor & sensory function, no focal deficits noted. Psychologic: Affect normal, judgement normal, mood normal. Current Patient Data: Labs: Current Medications Medications (Trade) Dose Ordered Sig/Hermila Route PRN Reason Start Time Stop Time Status Last Admin Dose Admin Sodium Chloride 500 ml @ 500 mls/hr 1X ONCE IV 06/17/21 20:00 06/17/21 20:53 DC 06/17/21 20:00 Vital Signs: Vital Signs Date Time Temp Pulse Resp B/P (MAP) Pulse Ox O2 Delivery O2 Flow Rate FiO2 06/17/21 18:50 98.6 69 18 115/56 (75) 97 Room Air 98.6 Vital Signs Date Time Temp Pulse Resp B/P (MAP) Pulse Ox O2 Delivery O2 Flow Rate FiO2 06/17/21 20:29 70 23 118/58 (78) 96 Room Air 06/17/21 18:50 98.6 98.6 EKG: EKG: EKG ordered and interpreted by myself at 1913 hrs. as sinus rhythm at 67 bpm, prolonged QRS at 210 and prolonged QTC at 540 otherwise unremarkable intervals, left axis deviation, no obvious ischemic findings, no STEMI Radiology/Procedures: Radiology/Procedures: [] Course & Med Decision Making: Course & Med Decision Making ABCs unremarkable HPI, physical exam and comprehensive ER work-up nonconcerning for any emergent or surgical issues. Patient's condition responded with a total of 1 L IV normal saline administration I reviewed and discussed potential need for further diagnostic work-up and hospital admission but given patient's asymptomatic state throughout entirety of ER visit and resolution of hypotension, joint decision made between patient, myself and spouse at bedside who is a former nurse to discharge home As such, strict return precautions were discussed at length with good understanding verbalized by both patient and spouse. Patient has good access to primary care and can be seen within upcoming 24 to 48 hours for repeat evaluation. They are knowledgeable on checking blood pressure etc. All questions and concerns addressed prior to ER departure Dragjethro Disclaimer: Selena Disclaimer: This electronic medical record was generated, in whole or in part, using a voice recognition dictation system. Departure Departure Impression: Primary Impression: Hypotension Disposition: 01 HOME / SELF CARE / HOMELESS Condition: STABLE Referrals: ESAU SAEED MD (PCP) Patient Instructions: Hypotension Additional Instructions: As discussed prior to ER departure, you were seen for hypotension. Your physical exam and comprehensive ER work-up was nonconcerning for any emergent or surgical issues. While the etiology of your low blood pressure is unclear, I suspect hypovolemia likely due to recent alcohol use. You are on numerous high risk medications for blood pressure and so, you should be diligent in checking your blood pressure numerous times daily especially before administering any blood pressure medications. 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 I suspect he will need a close outpatient follow-up for today's visit this upcoming week to review blood pressure log that you should keep from now until seen in outpatient setting. If any concerning signs or symptoms present prior to outpatient follow-up please do not hesitate to come back for repeat evaluation. It was a pleasure to take care of you and I wish you the best going forward LEANA CUENCA DO Jun 17, 2021 19:00
[2021-06-17 19:10] LABS: BASO # 0.1 x10^3/uL (0.0-0.2); BASO % 1 % (0-3); EOS # 0.1 x10^3/uL (0.0-0.7); EOS % 1 % (0-3); HEMATOCRIT 38.1 % (39.0-53.0); HEMOGLOBIN 13.2 g/dL (13.0-17.5); LYMPH # 2.5 x10^3/uL (1.0-4.8); LYMPH % 49 % (24-48); MEAN CORPUSCULAR HEMOGLOBIN 35 pg (25-35); MEAN CORPUSCULAR HGB CONC 35 g/dL (31-37); MEAN CORPUSCULAR VOLUME 99 fL (79-100); MONO # 0.5 x10^3/uL (0.0-1.1); MONO % 10 % (0-9); NEUT % 39 % (31-73); PLATELET COUNT 73 x10^3/uL (140-400); RED BLOOD COUNT 3.84 x10^6/uL (4.30-5.70); RED CELL DISTRIBUTION WIDTH 13.3 % (11.5-14.5); WHITE BLOOD COUNT 5.1 x10^3/uL (4.0-11.0)
[2021-06-17 19:18] LABS: CALCIUM 7.7 mg/dL (8.5-10.1); CREATININE 1.2 mg/dL (0.7-1.3); GFR 58.4; POTASSIUM 4.1 mmol/L (3.5-5.1)
[2021-06-17] MEDS ORDERED: IV NORMAL SALINE 500ML BAG 500 ML IV ONE (20:00)
[2021-06-17 20:29] VITALS: BP 118/58
--- NOTE | 2021-06-18 02:21 | EKG ---
[facility] [address] [place] [address] Test Date: 2021-06-17 Test Time: 19:08:07 Pat Name: YANIRA MOHAN Department: Room: Gender: M Entertainment Manager: : 1940 Requested By: LEANA CUENCA Order Number: [id number] Reading MD: Measurements Intervals [place] Rate: 67 P: 0 NC: 158 QRS: -28 QRSD: 210 T: -156 QT: 508 QTc: 540 Interpretive Statements SINUS RHYTHM LEFTWARD AXIS LOW LIMB LEAD VOLTAGE NON SPECIFIC INTRAVENTRICULAR BLOCK QRS(T) CONTOUR ABNORMALITY CONSISTENT WITH ANTEROLATERAL INFARCT AGE UNDETERMINED CONSISTENT WITH INFERIOR INFARCT AGE UNDETERMINED ABNORMAL ECG RI6.01 No previous ECG available for comparison
== END 2021-06-17 20:40 | disposition home or self-care (01) ==
LOC: ER 18:46
DX: I95.9 Hypotension, unspecified (principal); I11.0 Hypertensive heart disease with heart failure; I50.9 Heart failure, unspecified; E11.9 Type 2 diabetes mellitus without complications; I48.91 Unspecified atrial fibrillation; I25.2 Old myocardial infarction; Z88.1 Allergy status to other antibiotic agents; Z88.2 Allergy status to sulfonamides; Z88.6 Allergy status to analgesic agent; Z88.8 Allergy status to other drugs, medicaments and biological substances
CPT/HCPCS: 36415; 80048; 82962; 84484; 85025; 93005; 99284; J7040

== ENCOUNTER 2021-08-11 16:49 | Emergency (ER) | payer MEDICARE ==
[~2021-08-11] VITALS: Ht 175.3 cm; Wt 88.0 kg
--- NOTE | 2021-08-11 17:23 | PHYS DOC ---
Past Medical History Past Medical History: A-Fib, CHF, Diabetes-Type II, Hypertension Additional Past Medical Histor: PA Past Surgical History: TURP, Other Additional Past Surgical Histo: "I DON'T KNOW MY SURGICAL HISTORY." Smoking Status: Never Smoker Alcohol Use: None Drug Use: None General Adult EDM: Chief Complaint: BLOOD IN URINE HPI: HPI: Patient is a 81-year-old male who presents to the emergency department concerning seeing blood in his urine today. Patient reports seeing an odd brown color in his urine yesterday, it continued this morning so he decided to seek care at a local urgent care center. Patient reports being diagnosed with a urinary tract infection and was started on Keflex which he took his first dose today, no further treatment was recommended. Patient reports his urine turned from a brownish color to bright red, he became concerned and came to the emergency department for further evaluation. Patient denies pain or discomfort with urination. Reported only dark redness and increased urinary frequency. 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 Patient denies any changes in sensation to his genitals or buttocks area. Patient denies urinary retention. Patient reports having a TURP procedure for BHP in two thousand eight. Patient denies recent fever or chills, denies rashes to his skin. Denies nausea, vomiting, diarrhea. Reports taking carvedilol for atrial fibrillation, is on aspirin for blood thinning therapy, reported an allergy to Xarelto and Plavix. Patient reports being a type II diabetic. History of high blood pressure and GERD. Patient reports a surgical history of a pyloric vagotomy and [age], left shoulder surgery in nineteen [age], hemorrhoidectomy with fissure repair -nine, neuroma removal from right foot in two thousand and one, syrinx procedure November 2002, TURP procedure two thousand eight, negative cardiac cath two thousand nine, incomplete VATS procedure with atrial clip placement in two thousand thirteen related to excess bleeding and complications cardiac cath in two thousand fourteen. Reports a family history of colon cancer and lymphoma on father's side, heart disease on mother side. Reports his brother has history of adenocarcinoma sister with a history of glioblastoma, both siblings have . Review of Systems: Review of Systems: 14 body systems of review of systems have been reviewed. See HPI for pertinent positives and negative responses, otherwise all other systems are negative, nonpertinent or noncontributory. Constitutional: Negative except as outlined in HPI above. Skin: Negative except as outlined in HPI above. Eyes: Negative except as outlined in HPI above. HENT: Negative except as outlined in HPI above. Respiratory: Negative except as outlined in HPI above. Cardiovascular: Negative except as outlined in HPI above. GI: Negative except as outlined in HPI above. : Negative except as outlined in HPI above. Musculoskeletal: Negative except as outlined in HPI above. Integument: Negative except as outlined in HPI above. Neurologic: Negative except as outlined in HPI above. Endocrine: Negative except as outlined in HPI above. Lymphatic: Negative except as outlined in HPI above. Psychiatric: Negative except as outlined in HPI above. Heart Score: C/O Chest Pain: No Risk Factors: Risk Factors: DM, Current or recent (<one month) smoker, HTN, HLP, family history of CAD, obesity. Risk Scores: Score 0 - 3: 2.5% MACE over next 6 weeks - Discharge Home Score 4 - 6: 20.3% MACE over next 6 weeks - Admit for Clinical Observation Score 7 - 10: 72.7% MACE over next 6 weeks - Early Invasive Strategies Allergies: Allergies: Allergies Coded Allergies Type Severity Reaction Last Updated Verified fluticasone Allergy Intermediate elevated blood sugars 05/04/14 No itraconazole Allergy Intermediate legs swelling 05/04/14 No lisinopril Allergy Intermediate 05/13/14 Yes tolterodine Allergy Intermediate URINARY DIFFICULTY 08/08/15 Yes niacin Adverse Reaction Intermediate urgent bowel movements 05/04/14 Yes sulfamethoxazole Adverse Reaction Intermediate 05/27/18 Yes trimethoprim Adverse Reaction Intermediate 05/27/18 Yes Physical Exam: PE: Constitutional: Well developed, well nourished, no acute distress, non-toxic appearance. 81-year-old male in no apparent distress. HENT: Normocephalic, atraumatic. Eyes: Conjunctiva normal, no discharge. Neck: Normal range of motion, no stridor. Cardiovascular: No cyanosis appreciated, distal cap refill less than 2 seconds. Lungs & Thorax: Patient is in no respiratory distress, no audible adventitious lung sounds appreciated. Abdomen: Nontender, no abnormalities noted. Normal bowel sounds, no pain to palpation over bladder area. Bedside bladder scan reveals 67 cc of urine in bladder after 100 cc urine production into urinal, amador blood in urine noted. No blood clots appreciated. Skin: Warm, dry, no erythema, no rash. Back: No tenderness, no deformities. Extremities: No tenderness, no cyanosis, no clubbing, ROM intact, no edema. Neurologic: Alert and oriented X 3, normal motor function, normal sensory function, no focal deficits noted. Psychologic: Affect normal, judgement normal, mood normal. Current Patient Data: Vital Signs: Vital Signs Date Time Temp Pulse Resp B/P (MAP) Pulse Ox O2 Delivery O2 Flow Rate FiO2 08/11/21 17:03 98.2 64 16 159/70 (99) 98 Room Air 98.2 EKG: EKG: [] Radiology/Procedures: Radiology/Procedures: STATUS: REG ER ORD. PHYSICIAN: DARYL CASTELLON APRN REASON: Gross hematuria, omni 300 75 ml iv, pt coughed and talked so repeart part PROCEDURE: CT ABD PELV W/ IV CONTRST ONLY CT abdomen pelvis with contrast. HISTORY: Gross hematuria CT abdomen pelvis was done using 75 mL Omnipaque 300 contrast. There is mild groundglass atelectasis in the lung bases. Mild groundglass infiltrates are possible. There is a small right pleural effusion. Liver is normal in appearance. Spleen is unremarkable. Adrenal glands are normal. Pancreas is normal. There is no mass in the kidneys. There is mild bilateral hydronephrosis and hydroureter. A ureteral calculus is not identified. There is respiratory motion artifact. There is no bowel obstruction. Appendix is normal. There is diverticulosis of the colon without diverticulitis. There is marked thickening of the bladder wall with multiple bladder diverticula. There is mild inflammation surrounding the bladder which can be seen with infection. Delayed images were obtained through the kidney showing contrast in the intrarenal collecting systems which are normal. Ureters are not evaluated on the delayed images. There is no renal mass noted. IMPRESSION: 1. Mild bilateral hydronephrosis and hydroureter. 2. No renal mass noted. 3. Small right pleural effusion. 4. No renal or ureteral calculus. 5. Marked thickening of the bladder wall with bladder diverticula. 5. Mild inflammation in the fat stranding the bladder possible infection. PQRS Compliance Statement: One or more of the following individualized dose reduction techniques were utilized for this examination: 1. Automated exposure control 2. Adjustment of the mA and/or kV according to patient size 3. Use of iterative reconstruction technique Electronically signed by: Yogesh Edmondson MD (08/11/2021 7:15 PM) [facility] Course & Med Decision Making: Course & Med Decision Making Pertinent Labs and Imaging studies reviewed. (See chart for details) 81-year-old male, vital signs reviewed, presents emergency department concerning amador blood in urine today after being seen at urgent care and diagnosed with urinary tract infection. Physical examination unremarkable for pain and discomfort. Patient did have marked amador blood in urine, sent for urinalysis assay, patient does have a significant family history of cancers, patient does also have a history of a syrinx procedure wish left him with decreased sensation residually. Will CT abdomen pelvis with IV contrast to rule out hydronephrosis versus other infectious process. Patient is currently being treated with Keflex 500 mg p.o. twice daily started first dose today. Patient's urine positive for hematuria, red blood cells to mid count, signs of pyuria, there was no bacteria. No nitrites. Patient's lab work unremarkable, the patient reported a history of thrombocytopenia, however patient's platelet count 212 today. Patient's electrolytes within normal limits, patient has a history of diabetes type 2, blood sugar slightly elevated, no signs of DKA appreciated. Patient's CT abdomen pelvis with IV contrast concerning for mild hydronephrosis with hydroureter, no stone kidney or ureteral appreciated, showed bladder wall thickening with diverticula, consistent with bladder infection for CT also revealed a small right pleural effusion, patient is not hypoxic, patient is afebrile, there is no leukopenia or leukocytosis appreciated. Discussed findings with patient, strict follow-up with primary care soon, strict follow-up with his urologist at [facility] urology clinic this week. Continue taking antibiotic as directed. Discussed with patient urine sent to microbiology for culture and sensitivity, will be contacted if a need to change antibiotics is warranted. Discussed with patient increase fluids, return to emergency department precautions and concerns. Patient gave verbal understanding of and is amenable to ED discharge planning. Discussed with the patient all findings and diagnostic testing as well as the need to follow-up with their primary care provider for further evaluation and treatment or return to the ED if any new or worsening symptoms. Strict return precautions were also discussed at length, the patient voiced understanding and agreement with the discharge planning. The patient was nontoxic in appearance, in no apparent distress, and hemodynamically stable at the time of disposition. Selena Disclaimer: Selena Disclaimer: This electronic medical record was generated, in whole or in part, using a voice recognition dictation system. Departure Departure Impression: Primary Impression: Hematuria Qualified Codes: R31.0 - Gross hematuria Disposition: HOME / SELF CARE / HOMELESS Condition: GOOD Referrals: ESAU SAEED MD (PCP) Patient Instructions: Hematuria, Adult Additional Instructions: You are seen today in the emergency department for blood in your urine. A urinalysis assay was performed and did find blood in your urine and signs of bladder infection. A CT scan of your abdomen pelvis with IV contrast was performed today, there were signs of bladder wall thickening consistent with a bladder infection. However as we discussed, painless hematuria/blood in urine in males is a concern and as we discussed please follow-up with your urologist at the urology clinic this week, this is a must. We also discussed your urine sample was sent to the microbiology lab, and this part of the lab your urine will be tested with other antibiotics, if a antibiotic change is warranted, you will be contacted at the telephone number you left with our admitting clerks. Please continue to take your Keflex antibiotic as directed by the urgent care center you seen today. Increase your fluid intake to help flush out any infectious process in your bladder. Return to the emergency department for urinary retention, increased fevers, any sudden onset of severe abdominal pains, or other concerns. Please follow-up with your primary care physician Dr. Saeed this week to let her know you are seen in the emergency department and you had a CT of your abdomen and pelvis so that she can review your CT imaging and to provide close follow-up for your urinary tract infection and hematuria. Thank you for visiting our Emergency Department. It was a pleasure taking care of you today in the emergency department and we appreciate you trusting us with your care. If any additional problems come up don't hesitate to return to visit us. Please follow up with your primary care provider so they can plan additional care if needed and know about the problem that you had. If symptoms worsen come back to the Emergency Department. Any concerning symptoms that start such as chest pain, shortness of air, weakness or numbness on one side of the body, running high fevers or any other concerning symptoms return to the ER. EMERGENCY DEPARTMENT GENERAL DISCHARGE INSTRUCTIONS Thank you for coming to [facility] Emergency Department (ED) today and trusting us with you care. We trust that you had a positive experience in our Emergency Department. If you wish to speak to the department management, you may call the Director at [phone]. YOUR FOLLOW UP INSTRUCTIONS ARE FOLLOWS: 1. Do you have a private Doctor? If you do not have a private doctor, please ask for a resource list of physicians or clinics that may be able to assist you with follow up care. 2. The Emergency Physicain has interpreted your x-rays. The X-Ray specialist will also review them. If there is a change in the findings, you will be notified in 48 hours when at all possible. 3. A lab test or culture has been done, your results will be reviewed and you will be notified if you need a change in treatment. ADDITIONAL INSTRUCTIONS AND INFORMATION: 1. Your care today has been supervised by a physician who is specially trained in emergency care. Many problems require more than one evaluation for a complete diagnosis and treatment. We recommend that you schedule your follow up appointment as recommended to ensure complete treatment of you illness or injury. If you are unable to obtain follow up care and continue to have a problem, or if your condition worsens, we recommend that you return to the ED. 2. We are not able to safely determine your condition over the phone nor are we able to give sound medical advice over the phone. For these safety reasons, if you call for medical advice we will ask you to come to the ED for further evaluation. 3. If you have any questions regarding these discharge instructions please call the ED at [phone]. SAFETY INFORMATION: In the interest of safety, wellness, and injury prevention; we encourage you to wear your sealbelt, if you smoke; quite smoking, and we encourage family to use a protective helmet for bicycling and other sporting events that present an increased risk for head injury. IF YOUR SYMPTOMS WORSEN OR NEW SYMPTOMS DEVELOP, OR YOU HAVE CONCERNS ABOUT YOUR CONDITION; OR IF YOUR CONDITION WORSENS WHILE YOU ARE WAITING FOR YOUR FOLLOW UP APPOINTMENT; EITHER CONTACT YOUR PRIMARY CARE DOCTOR, THE PHYSICIAN WHOSE NAME AND NUMBER YOU WERE GIVEN, OR RETURN TO THE ED IMMEDIATELY. DARYL CASTELLON APRN Aug 11, 2021 17:23
[2021-08-11 17:27] LABS: COLOR,URINE RED
[2021-08-11 17:30] LABS: BACTERIA,URINE 0 /HPF (0-FEW); RBC,URINE TNTC /HPF (0-2); WBC,URINE 20-40 /HPF (0-4)
[2021-08-11 17:31] LABS: CLARITY,URINE BLOODY
[2021-08-11 17:36] LABS: BASO # 0.1 x10^3/uL (0.0-0.2); BASO % 1 % (0-3); EOS # 0.2 x10^3/uL (0.0-0.7); EOS % 2 % (0-3); HEMATOCRIT 43.9 % (39.0-53.0); HEMOGLOBIN 15.2 g/dL (13.0-17.5); LYMPH # 1.4 x10^3/uL (1.0-4.8); LYMPH % 13 % (24-48); MEAN CORPUSCULAR HEMOGLOBIN 34 pg (25-35); MEAN CORPUSCULAR HGB CONC 35 g/dL (31-37); MEAN CORPUSCULAR VOLUME 98 fL (79-100); MONO # 1.1 x10^3/uL (0.0-1.1); MONO % 10 % (0-9); NEUT # 7.8 x10^3/uL (1.8-7.7); NEUT % 74 % (31-73); PLATELET COUNT 114 x10^3/uL (140-400); RED BLOOD COUNT 4.49 x10^6/uL (4.30-5.70); RED CELL DISTRIBUTION WIDTH 12.6 % (11.5-14.5); WHITE BLOOD COUNT 10.6 x10^3/uL (4.0-11.0)
[2021-08-11 17:48] LABS: CALCIUM 9.1 mg/dL (8.5-10.1); CREATININE 0.7 mg/dL (0.7-1.3); GFR 108.8; POTASSIUM 4.4 mmol/L (3.5-5.1)
[2021-08-11 17:54] LABS: ALBUMIN 3.4 g/dL (3.4-5.0); TOTAL BILIRUBIN 0.8 mg/dL (0.2-1.0); TOTAL PROTEIN 6.9 g/dL (6.4-8.2)
[2021-08-11] MEDS ORDERED: IOHEXOL 300 MG/ML 100ML VIAL. IV ONE (18:00)
[2021-08-11] MEDS ORDERED: CONTRAST GIVEN. MC PRN (18:00)
--- NOTE | 2021-08-11 19:18 | RAD ---
CT abdomen pelvis with contrast. HISTORY: Gross hematuria CT abdomen pelvis was done using 75 mL Omnipaque 300 contrast. There is mild groundglass atelectasis in the lung bases. Mild groundglass infiltrates are possible. There is a small right pleural effusion . Liver is normal in appearance. Spleen is unremarkable. Adrenal glands are normal. Pancreas is trish l. There is no mass in the kidneys. There is mild bilateral hydronephrosis and hydroureter. A uretera l calculus is not identified. There is respiratory motion artifact. There is no bowel obstruction. Ap pendix is normal. There is diverticulosis of the colon without diverticulitis. There is marked thicke johnny of the bladder wall with multiple bladder diverticula. There is mild inflammation surrounding th e bladder which can be seen with infection. Delayed images were obtained through the kidney showing contrast in the intrarenal collecting systems which are normal. Ureters are not evaluated on the delayed images. There is no renal mass noted. IMPRESSION: 1. Mild bilateral hydronephrosis and hydroureter. 2. No renal mass noted. 3. Small right pleural effusion. 4. No renal or ureteral calculus. 5. Marked thickening of the bladder wall with bladder diverticula. 5. Mild inflammation in the fat stranding the bladder possible infection. PQRS Compliance Statement: One or more of the following individualized dose reduction techniques were utilized for this examinat ion: 1. Automated exposure control 2. Adjustment of the mA and/or kV according to patient size 3. Use of iterative reconstruction technique Electronically signed by: Yogesh Edmondson MD (08/11/2021 7:15 PM) [facility]
[2021-08-11 19:32] VITALS: BP 156/70
== END 2021-08-11 20:00 | disposition home or self-care (01) ==
LOC: ER 16:49
DX: R31.0 Gross hematuria (principal); I11.0 Hypertensive heart disease with heart failure; I50.9 Heart failure, unspecified; I48.91 Unspecified atrial fibrillation; I25.2 Old myocardial infarction; Z88.1 Allergy status to other antibiotic agents; Z88.2 Allergy status to sulfonamides; Z88.6 Allergy status to analgesic agent; Z88.8 Allergy status to other drugs, medicaments and biological substances
CPT/HCPCS: 36415; 74177; 80053; 81001; 85025; 85610; 87086; 99285; Q9967

== ENCOUNTER → 2021-09-19 | Outpatient (CLI) | payer MEDICARE ==
--- NOTE | 2021-09-19 13:47 | RAD ---
EXAM: Chest, 2 views. HISTORY: Cough. COMPARISON: None. FINDINGS: 2 views of the chest are obtained. There is bilateral infrahilar atelectasis or scarring. T here is slight dextro positioning of the heart. There is no consolidation, pleural effusion or pneumo thorax. There is a closure device overlying the left heart. There are clips within the gastric esopha geal junction and right breast. IMPRESSION: No acute pulmonary finding. Electronically signed by: Annabelle Scales MD (09/19/2021 1:44 PM) [id number]
== END ==
LOC: RAD 13:03
PROVIDERS: ATTEND Family Medicine
DX: U07.1 COVID-19 (principal); R05.9 Cough, unspecified
CPT/HCPCS: 71046

== ENCOUNTER → 2021-10-05 | Outpatient (CLI) | payer MEDICARE ==
[~2021-10-05] MED LIST changes: +REGADENOSON 0.4 MG/5 ML DISP.SYRIN. IV ONE
--- NOTE | 2021-10-05 13:09 | RAD ---
MR#: [id number] Date of Study: 10/05/2021 Ordering Physician: ONEL MORROW, Referring Physician: CELSO TARIQ Tech: RT Mauricio (R) (N) APPROVED REPORT Test Type: Pharmacological Stress Nurse/Tech: Leno Ferrer RN Test Indications: arial fibrillation Cardiac History: a-fib, amplatzer 09/07, HTN, DM Medications: See Electronic Medical Record Medical History: See Electronic Medical Record Resting ECG: SR Resting Heart Rate: 62 bpm Resting Blood Pressure: 140/66mmHg Pretest Chest Pain: None Nurse/Tech Notes lungs CTA, S1S2 Consent: The procedure was explained to the patient in lay terms. Informed consent was witnessed. Mumtaz eout was entered into [employer]. History and Stress Test performed by KEIKO Tubbs, AKASH (R) (N) Pharm. Details Pharmacologic stress testing was performed using 0.4mg per 5ml of regadenoson given intravenously ove r 7-10 seconds. Stress Symptoms No chest pain or symptoms. POST EXERCISE Reason for Termination: Infusion complete Max Blood Pressure: 149/70mmHg Blood Pressure response to exercise: Normal blood pressure response during stress. Heart Rate response to exercise: normal response Chest Pain: No. Arrhythmia: Yes. PVC ST Change: No. INTERPRETATION Stress EKG Conclusion: Baseline EKG showed sinus rhythm. No ischemic changes at peak stress. Few PV Cs without any significant arrhythmias. Imaging Protocol IMAGE PROTOCOL: Rest Tc-99m/stress Tc-99m 1 day Rest: Stress: Viability: Radiopharm.Tc99m [id number] Sestamibi Dose10.1mCi 31mCi Duration 13min. 13min. Img Date 10/05/2021 10/05/2021 Inj-Img [id number]. 60min. Rest Admin Site:IV - Right ForearmAdministrator:RT Mauricio (R)(N) Stress Admin Site: IV - Right ForearmAdministrator: KEIKO Tubbs, AKASH (R)(N) STRESS DATA End Diast. Vol.99.0mlLVEDV index BSA49.0ml End Syst. Vol.32.0mlLVESV index BSA16.0ml Myocardial Aqof000.0gEject. Hcqijqbi43.0% Stress Scores Regional WT2.00Summed WT23.00 Regional WM0.00Summed WM2.00 LV Perfusion Scintigraphic images showed small reversible defect involving the apical wall consistent with ischemi a. Wall Motion Normal left ventricle systolic function with ejection fraction calculated at 68% LV Perf. Quant 17 Seg. SSS11.00 17 Seg. SRS11.00 17 Seg. SDS1.00 Stress Defect Extent (% LAD)8.80Rest Defect Extent (% LAD)2.50Rev. Defect Extent (% LAD)1.30 Stress Defect Extent (% LCX) 70.00Rest Defect Extent (% LCX)73.80Rev. Defect Extent (% LCX)0.00 Stress Defect Extent (% RCA)2.20Rest Defect Extent (% RCA)1.10Rev. Defect Extent (% RCA)0.00 Stress Defect Extent (% THERESA)22.00Rest Defect Extent (% THERESA)19.60Rev. Defect Extent (% THERESA)0.40 Conclusion 1. Regadenoson cardioisotope stress test showed small amount of apical wall ischemia. 2. Normal left ventricular systolic function with ejection fraction calculated at 68%. 3. Low to intermediate risk for cardiac events. Signed by : Onel Morrow, Electronically Approved : 10/05/2021 13:08:53
== END ==
LOC: NM 07:41
PROVIDERS: ATTEND Internal Medicine Cardiovascular Disease
DX: I25.9 Chronic ischemic heart disease, unspecified (principal); I48.91 Unspecified atrial fibrillation
CPT/HCPCS: 78452; 93017; A9500; J2785